=== PATIENT | male | born 1995 | race American Indian/Alaskan Native ===

== ENCOUNTER 2018-06-08 00:37 | Emergency (ER) | payer MEDICAID, OTHER ==
[2018-06-08 00:37] VITALS: BMI 20.5
[2018-06-08 00:45] VITALS: BP 135/90; PULSE 96; RESP 16; TEMP 97.8; O2SAT 98
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
== END 2018-06-08 05:25 | disposition home or self-care (01) ==
LOC: H.ER 00:37
DX: S09.90XA Unspecified injury of head, initial encounter (principal); S02.2XXA Fracture of nasal bones, initial encounter for closed fracture; Y04.0XXA Assault by unarmed brawl or fight, initial encounter; Y92.89 Other specified places as the place of occurrence of the external cause; F41.9 Anxiety disorder, unspecified